=== PATIENT | male | born 1980 ===

== ENCOUNTER 2022-06-19 17:05 | Emergency (ER) | payer BC, OTHER ==
[~2022-06-19] VITALS: Ht 177.8 cm; Wt 84.1 kg
[2022-06-19 17:10] VITALS: BP 119/76
[2022-06-19] MEDS ORDERED: ketorolac trometh inj. 60 MG/2 ML VIAL IM ONE (18:55)
[2022-06-19] MEDS ORDERED: IBUP-1986 PO (20:04)
== END 2022-06-19 20:50 | disposition home or self-care (01) ==
LOC: ER 17:06
DX: R07.81 Pleurodynia (principal); Z91.030 Bee allergy status; Z79.899 Other long term (current) drug therapy
CPT/HCPCS: 71100; 96372; 99283; J1885